=== PATIENT | male | born 1970 | race African-American/Black ===

== ENCOUNTER 2023-04-22 10:39 | Emergency (ER) | payer OTHER ==
[2023-04-22] MEDS ORDERED: HYDROcodone/Acetaminophen 5/325 mg Tablet ONE (11:49)
[2023-04-22] MEDS ORDERED: Metoprolol Tartrate 50 MG TAB ONE (12:04)
== END 2023-04-22 12:25 | disposition home or self-care (01) ==
LOC: NAV ERS 10:39
DX: S62.316A Displaced fracture of base of fifth metacarpal bone, right hand, initial encounter for closed fracture (principal); S00.83XA Contusion of other part of head, initial encounter; I11.0 Hypertensive heart disease with heart failure; I50.9 Heart failure, unspecified; E11.9 Type 2 diabetes mellitus without complications; M10.9 Gout, unspecified; E78.5 Hyperlipidemia, unspecified; Y00.XXXA Assault by blunt object, initial encounter; Y93.89 Activity, other specified; Y92.149 Unspecified place in prison as the place of occurrence of the external cause; Z95.0 Presence of cardiac pacemaker; Z79.899 Other long term (current) drug therapy
CPT/HCPCS: 29125; 70450; 70486; 72125